=== PATIENT | male | born 1980 | race Caucasian/White ===

== ENCOUNTER 2023-11-21 15:14 | Emergency (ER) | payer MEDICARE, MEDICAID, SELFPAY ==
[2023-11-21 15:22] VITALS: BP 177/109; PULSE 99; RESP 16; TEMP 37.1; O2SAT 100
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
== END 2023-11-21 16:05 | disposition short-term general hospital (02) ==
PROVIDERS: Emergency Provider Registered Nurse
DX: R60.0 Localized edema (principal); R19.04 Left lower quadrant abdominal swelling, mass and lump; M54.6 Pain in thoracic spine; Q87.2 Congenital malformation syndromes predominantly involving limbs; Z86.718 Personal history of other venous thrombosis and embolism
CPT/HCPCS: 99202; G0463

== ENCOUNTER 2023-11-21 16:32 | Emergency (ER) | payer MEDICARE, MEDICAID, SELFPAY ==
--- NOTE | ~2023-11-21 | CT_ITS ---
EXAMINATION: CT abdomen pelvis w con DATE: 11/21/2023 20:12 INDICATION: LLQ tenderness, Hx DVTs TECHNIQUE: Computed tomography (CT) of the abdomen and pelvis was performed with 100 mL Omnipaque-350 intravenous contrast. Automated exposure control and iterative reconstruction technique were employe d. The dose-length product was 663.92 mGy-cm. COMPARISON: None. FINDINGS: Lower thorax: Unremarkable Liver: Normal. Biliary/Gallbladder: Gallbladder is normal. No bile duct dilation. Pancreas: No mass or duct dilation. Spleen: Normal. Adrenals:No mass. Kidneys: No suspicious mass, obstructing stone, or hydronephrosis. Multiple nonobstructing right mid and lower pole calcifications measuring up to 4 mm. GI tract: Mild distal esophageal and gastric wall edema. No small or large bowel dilation. Normal amira endix. Mesentery/Peritoneum: No ascites, mass, or free air. Retroperitoneum: No mass. Pelvis: Marked urinary bladder distention. Normal prostate. Soft Tissues: Varicosities in the left groin. Status post left inguinal hernia repair. Bones: No acute osseous finding. IMPRESSION: Mild esophagitis/gastritis. Marked urinary bladder distention, correlate for clinical history/findings of urinary retention. Otherwise, no acute abdominopelvic process detected. Reviewed, dictated and finalized at location K. IMPRESSION: Mild esophagitis/gastritis. Marked urinary bladder distention, correlate for clinical history/findings of u rinary retention. Otherwise, no acute abdominopelvic process detected.
--- NOTE | ~2023-11-21 | US_ITS ---
EXAMINATION: US venous doppler [facility] DATE: 11/21/2023 18:46 INDICATION: Left lower limb pain and swelling, r/o DVT and possible superficial thrombophlebitis . TECHNIQUE: Grayscale images without and with compression and Doppler images of the left lower extremi ty veins were obtained. COMPARISON: None FINDINGS: The left common femoral vein, profunda (deep) femoral vein, femoral vein, popliteal vein, peroneal v ein, posterior tibial veins, gastrocnemius vein, and greater saphenous vein are patent. IMPRESSION: Patent left lower extremity veins. No evidence of deep venous thrombosis. Reviewed, dictated and finalized at location K.
[2023-11-21 17:42] VITALS: BP 158/108; PULSE 103; RESP 18; TEMP 36.8; O2SAT 100
--- NOTE | 2023-11-21 17:55 | ED.GENADULT ---
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 It is painful with palpation. Currently transitioning to a new PCP In [place] January 02 . GENERAL: Well-appearing, well-nourished, and in no acute distress. HEAD: Normocephalic, atraumatic. CHEST: Clear to auscultation. ?No respiratory distress. HEART: Regular rate and rhythm.? NEURO: ?Alert and oriented x3. Patient screened in triage and initial orders placed.? ?Additional care and disposition to be based upon?diagnostic testing and treatment. <Maria Elena Brewer January, - Last Filed: 11/21/23 18:06> Related Data Allergies/adverse reactions: Allergies Allergy/AdvReac Type Severity Reaction Status Date / Time menthol AdvReac Mild Nausea Verified 11/21/23 19:01 <Maria Elena Brewer January, - Last Filed: 11/21/23 18:06> Review of Systems Review of Systems: All systems as dictated in HPI <Eduar Cano PA-C - Last Filed: 11/22/23 03:20> [facility] Past Medical History Medical History: Medical History (Updated 11/22/23 @ 00:01 by Yony Yap) Klippel Trenaunay syndrome <Maria Elena Brewer January, - Last Filed: 11/21/23 18:06> Exam Narrative: GENERAL: Well-appearing, well-nourished, and in no acute distress. HEAD: Normocephalic, atraumatic. EYES: PERRLA and EOMI. ENT: Nares clear, no rhinorrhea or epistaxis. Mucous membranes moist. Oropharynx without tonsillar hypertrophy exudate or other lesions. NECK: Supple. No adenopathy or masses. CHEST: No respiratory distress. Clear to auscultation. No wheezes rales or rhonchi HEART: Regular rate and rhythm. No murmur heard. Normal peripheral pulses. ABDOMEN: Mild left lower quadrant tenderness. Soft, nontender, nondistended, normal active bowel sounds. No overlying the abdominal skin changes. No evidence of hernia MSK: Diffuse nonpitting swelling to the left lower extremity from foot to knee. SKIN: Lichenified skin throughout the entire left lower extremity. No purulence, erythema or induration NEURO: Alert and oriented x3. No focal deficits. PSYCH: Normal mood and affect. <Eduar Cano PA-C - Last Filed: 11/22/23 03:20> Course Vital Signs Vital signs: Vital Signs Temperature 98.3 F 11/21/23 17:42 Pulse Rate 103 H 11/21/23 17:42 Respiratory Rate 18 11/21/23 17:42 Blood Pressure 158/108 H 11/21/23 17:42 Pulse Oximetry 100 11/21/23 17:42 Oxygen Delivery Room Air 11/21/23 17:42 Temperature 98.4 F 11/21/23 21:56 Pulse Rate 98 11/21/23 21:56 Respiratory Rate 20 11/21/23 21:56 Blood Pressure 162/97 H 11/21/23 21:56 Pulse Oximetry 100 11/21/23 21:56 Oxygen Delivery Room Air 11/21/23 17:42 <Maria Elena Canchola, SENIOR MANAGING DIRECTOR - Last Filed: 11/21/23 18:06> Vital Signs Temperature 98.3 F 11/21/23 17:42 Pulse Rate 103 H 11/21/23 17:42 Respiratory Rate 18 11/21/23 17:42 Blood Pressure 158/108 H 11/21/23 17:42 Pulse Oximetry 100 11/21/23 17:42 Oxygen Delivery Room Air 11/21/23 17:42 Temperature 98.4 F 11/21/23 21:56 Pulse Rate 98 11/21/23 21:56 Respiratory Rate 20 11/21/23 21:56 Blood Pressure 162/97 H 11/21/23 21:56 Pulse Oximetry 100 03/18/24 21:56 Oxygen Delivery Room Air 11/21/23 17:42 <Eduar Cano PA-C - Last Filed: 11/22/23 03:20> Medical Decision Making MDM Narrative Medical decision making narrative: This is a 43-year-old m
[2023-11-21 19:31] LABS: Basophils Percent Auto 0.5 % (0.2-1.2); Eosinophils Absolute Auto 0.1 K/mm3 (0-0.3); Eosinophils Percent Auto 1.3 % (0-4.4); Hematocrit 44.4 % (42.0-52.0); Hemoglobin 14.3 g/dL (14.0-18.0); Immature Granulocyte Absolute 0.03 K/mm3 (0.00-0.031); Immature Granulocyte Percent A 0.4 % (0-0.5); Lymphocytes Absolute Auto 1.81 K/mm3 (0.9-3.2); Lymphocytes Percent Auto 23.5 % (18.3-44.2); Mean Corpuscular HGB Conc 32.2 g/dl (32-36); Mean Corpuscular Hemoglobin 26.6 pg (26-34); Mean Corpuscular Volume 82.7 fl (80-100); Mean Platelet Volume 8.7 fl (7.4-10.4); Monocytes Absolute Auto 0.5 K/mm3 (0.1-0.6); Monocytes Percent Auto 6.5 % (2.6-8.5); Neutrophils Absolute Auto 5.2 K/mm3 (1.3-6.7); Neutrophils Percent Auto 67.8 % (45.5-73.1); Platelet Count Result 318 k/mm3 (150-375); Red Blood Count 5.37 M/mm3 (4.6-6.20); Red Cell Distribution Width 13.5 % (11.5-14.5); White Blood Count 7.7 K/mm3 (4.5-10.0)
[2023-11-21 19:35] LABS: Alanine Aminotransferase 39 U/L (6-50); Albumin Level 4.8 g/dL (3.5-5.1); Alkaline Phosphatase 81 U/L (38-126); Anion Gap 6 mmol/L (8-16); Aspartate Amino Transferase 43 U/L (17-59); Bilirubin,Total 1.4 mg/dL (0.2-1.3); Blood Urea Nitrogen 12 mg/dL (9-20); Calcium 9.7 mg/dL (8.4-10.2); Carbon Dioxide 29 mmol/L (22-30); Chloride 103 mmol/L (98-107); Estimated Glomerular Filt Rate > 60; Glucose 103 mg/dL (65-110); Sodium 138 mmol/L (137-145)
[2023-11-21 19:40] LABS: Prothrombin Time 13.7 Seconds (11.1-14.7)
[2023-11-21] MEDS: ACETAMINOPHEN 500 MG TABLET 1000 MG PO (20:14)
[2023-11-21 21:56] VITALS: BP 162/97; PULSE 98; RESP 20; TEMP 36.9; O2SAT 100
== END 2023-11-21 21:57 | disposition home or self-care (01) ==
PROVIDERS: Emergency Medicine; Emergency Provider Physician Assistant
DX: R10.32 Left lower quadrant pain (principal); R22.42 Localized swelling, mass and lump, left lower limb; Q87.2 Congenital malformation syndromes predominantly involving limbs; K20.90 Esophagitis, unspecified without bleeding; K29.70 Gastritis, unspecified, without bleeding
CPT/HCPCS: 36415; 74177; 80053; 85025; 85610; 93971; 99284; A9270; Q9967

== ENCOUNTER 2024-01-06 09:33 | Outpatient (CLI) | payer MEDICARE, MEDICAID, SELFPAY ==
[2024-01-06 20:19] LABS: Cholesterol 163 mg/dL (0-200); HDL Direct 47 mg/dL; Triglycerides 68 mg/dL (<150)
[2024-01-06 20:30] LABS: LDL Cholesterol Direct 99 mg/dL
== END 2024-01-06 09:34 | disposition home or self-care (01) ==
LOC: ANHGOSHLAB 09:35
PROVIDERS: PCP Emergency Medicine; Visit Provider Emergency Medicine
DX: E66.9 Obesity, unspecified (principal)
CPT/HCPCS: 36415; 80061

== ENCOUNTER 2024-03-01 12:49 | Emergency (ER) | payer MEDICARE, MEDICAID, SELFPAY ==
--- NOTE | ~2024-03-01 | US_ITS ---
EXAMINATION: US venous doppler [facility] DATE: 03/01/2024 14:25 INDICATION: Left lower limb pain. TECHNIQUE: Grayscale ultrasound images without and with compression and Doppler ultrasound images of the left lower extremity veins were obtained. COMPARISON: Ultrasound 11/21/2023 FINDINGS: The visualized portions of left common femoral vein, profunda (deep) femoral vein, femoral vein, popl iteal vein, peroneal veins, posterior tibial veins, and greater saphenous vein outflow are patent. Th ere is a thrombus in a superficial vein in left calf. IMPRESSION: 1. Thrombus in a superficial vein in the left calf. 2. No deep venous thrombosis. Reviewed, dictated and finalized at location A.
[2024-03-01 12:56] VITALS: BP 148/92; PULSE 109; RESP 20; TEMP 36.4; O2SAT 100
--- NOTE | 2024-03-01 15:21 | ED.LOWEXIN ---
HPI - Extremity Injury (Lower) General Chief Complaint: Extremity Injury, Lower Stated Complaint: left knee pain Time Seen by Provider: 03/01/24 13:24 Source: patient Mode of arrival: ambulatory Limitations: no limitations History of Present Illness HPI Narrative: This is a 43 year old male that presents to the ER for left leg swelling and pain. Reports history of Klippel-Trenaunay syndrome and is predisposed to clotting. Was concerned he may have a DVT which prompted him to be seen. Denies fever or chest pain. Related Data Allergies Allergy/AdvReac Type Severity Reaction Status Date / Time sulfamethoxazole Allergy Hives Verified 03/01/24 13:02 [From Bactrim] trimethoprim [From Bactrim] Allergy Hives Verified 03/01/24 13:02 menthol AdvReac Mild Nausea Verified 03/01/24 13:02 durapain Allergy Mild Headache Uncoded 03/01/24 13:02 Review of Systems Review of Systems: CONSTITUTIONAL: Denies fever MUSCULOSKELETAL: Reports myalgia. Denies joint pain NEUROLOGIC: Denies numbness All systems reviewed & are unremarkable except as noted in HPI and below PMFSH Past Medical History Medical History (Updated 03/01/24 @ 15:22 by Leana Steiner PA-C) Asthma Blood clots in biliary tract following procedure Headache, migraine Irritable bowel syndrome Klippel Trenaunay syndrome Seasonal allergies Family History Family History Father Alcoholism Hypertension Depression Cerebrovascular accident Sibling Asthma Hypertension Depression Grandparent Cancer Alcoholism Grandparent Hypertension Social History Social History Social History: caffeine-soda Smoking status: Never smoker Second hand tobacco smoke exposure: No Alcohol intake: current Drinks per week: 1 Substance use: current Substance use type: does not use Do You Feel Safe in your Home?: Yes Lack of Transportation: No Lack of Food: Sometimes True Current Housing: Decline to Answer Concerned About Future Housing: YES Difficulty Paying Gas/Electric Bills: No Difficulty Paying for Meds: No Currently Unemployed: No Education: Bachelor's Degree Difficulty w/ Childcare or Family Care: No Living arrangements: with family Occupation/Education: other Additional occupation/education comments: diabled Gender identity (if verbalized by the patient): Male Sexual Orientation (if Verbalized by the Patient): Straight or Heterosexual Exam Narrative: GENERAL: Well-appearing, well-nourished, and in no acute distress. HEAD: Normocephalic, atraumatic. EYES: EOMI. EXTREMITIES: Normal range of motion. Edema with dry scaly skin with lichenification to the left lower leg. No erythema or abnormal drainage SKIN: Warm, dry, no rash. NEURO: No focal deficits. Alert and oriented x3. PSYCH: Normal mood and affect Course Course Emergency Course: Patient updated on his workup and agrees with plan of care Vital Signs Vital signs: Vital Signs Temperature 97.6 F 03/01/24 12:56 Pulse Rate 109 H 03/01/24 12:56 Respiratory Rate 20 03/01/24 12:56 Blood Pressure 148/92 H 03/01/24 12:56 Pulse Oximetry 100 03/01/24 12:56 Oxygen Delivery Room Air 03/01/24 12:56 Temperature 97.6 F 03/01/24 12:56 Pulse Rate 109 H 03/01/24 12:56 Respiratory Rate 20 03/01/24 12:56 Blood Pressure 148/92 H 03/01/24 12:56 Pulse Oximetry 100 03/01/24 12:56 Oxygen Delivery Room Air 03/01/24 12:56 MDM - Extremity Injury (Lower) MDM Narrative Medical decision making narrative: Patient presents to the emergency department for left calf pain and swelling. He is afebrile and nontoxic appearing. He is neurovascularly intact. Left lower extremity venous Doppler without evidence of DVT. Does show superficial thrombophlebitis. Patient will be treated with warm compresses and anti-inflammatories. He is to
[2024-03-01 15:50] VITALS: BP 118/87; PULSE 79; RESP 18; O2SAT 98
== END 2024-03-01 15:52 | disposition home or self-care (01) ==
PROVIDERS: Emergency Provider Physician Assistant; PCP Emergency Medicine
DX: I80.02 Phlebitis and thrombophlebitis of superficial vessels of left lower extremity (principal); J45.909 Unspecified asthma, uncomplicated; Q87.2 Congenital malformation syndromes predominantly involving limbs; K58.9 Irritable bowel syndrome, unspecified
CPT/HCPCS: 93971; 99284